=== PATIENT | female | born 1945 | race Hispanic/Latino ===

== ENCOUNTER 2019-07-09 13:46 | Emergency (ER) | payer MEDICARE ==
[~2019-07-09] VITALS: Ht 154.9 cm; Wt 63.6 kg
[2019-07-09] MEDS ORDERED: IBUPROFEN 600 MG TAB PO STA (14:08)
[2019-07-09] MEDS ORDERED: IBUPROFEN 600 MG TAB ONE (14:18)
[2019-07-09] MEDS ORDERED: CEFDINIR300 MG PO (15:17)
[2019-07-09] MEDS ORDERED: ACETAMINOPHEN 325 MG TAB ONE (15:42)
[2019-07-09] MEDS ORDERED: ACETAMINOPHEN 325 MG TAB PO ONE (15:45)
[2019-07-09 16:26] VITALS: BP 157/81
== END 2019-07-09 16:13 | disposition home or self-care (01) ==
LOC: FSED 13:46
DX: R50.9 Fever, unspecified (principal); R05 Cough; J20.9 Acute bronchitis, unspecified; J02.9 Acute pharyngitis, unspecified
CPT/HCPCS: 83518; 87400; 99283

== ENCOUNTER 2021-11-02 08:56 | Emergency (ER) | payer MEDICARE ==
[~2021-11-02] VITALS: Ht 157.5 cm; Wt 63.0 kg
[~2021-11-02 08:56] MED LIST: CEFDINIR300 MG PO
[2021-11-02] MEDS ORDERED: ANTIVERT25 M1 PO (09:29)
[2021-11-02 10:52] VITALS: BP 150/79
== END 2021-11-02 10:53 | disposition home or self-care (01) ==
LOC: FSED 09:22
DX: H81.12 Benign paroxysmal vertigo, left ear (principal); E11.65 Type 2 diabetes mellitus with hyperglycemia; I10 Essential (primary) hypertension; E78.5 Hyperlipidemia, unspecified; N28.9 Disorder of kidney and ureter, unspecified; J45.909 Unspecified asthma, uncomplicated; R94.31 Abnormal electrocardiogram [ECG] [EKG]; Z85.3 Personal history of malignant neoplasm of breast
CPT/HCPCS: 70450; 80053; 82553; 84484; 85025; 93005; 99284

== ENCOUNTER 2022-03-20 18:25 | Emergency (ER) | payer MEDICARE ==
[~2022-03-20] VITALS: Ht 157.5 cm; Wt 63.0 kg
[~2022-03-20 18:25] MED LIST changes: +ANTIVERT25 M1 PO
[2022-03-20] MEDS ORDERED: IBUPROFEN200 MG PO (18:54)
[2022-03-20] MEDS ORDERED: CLINDAMYCIN HC300 MG PO (18:54)
[2022-03-20] MEDS ORDERED: DOXYCYCLINE HY100 MG PO (18:54)
[2022-03-20] MEDS ORDERED: PROBIOTIC & AC1 EACH PO (18:54)
[2022-03-20] MEDS ORDERED: CEFTRIAXONE 1 GM VIAL IM ONE (19:00)
[2022-03-20] MEDS ORDERED: LIDOCAINE HCL 1% LOCAL INJ 20 ML VIAL ONE (19:18)
== END 2022-03-20 19:52 | disposition home or self-care (01) ==
LOC: FSED 18:36
DX: R50.9 Fever, unspecified (principal); L03.311 Cellulitis of abdominal wall; I12.9 Hypertensive chronic kidney disease with stage 1 through stage 4 chronic kidney disease, or unspecified chronic kidney disease; E11.22 Type 2 diabetes mellitus with diabetic chronic kidney disease; N18.9 Chronic kidney disease, unspecified; E78.5 Hyperlipidemia, unspecified; J45.909 Unspecified asthma, uncomplicated; Z85.3 Personal history of malignant neoplasm of breast
CPT/HCPCS: 99282; J0696; J2001

== ENCOUNTER 2024-12-07 20:27 | Emergency (ER) | payer MEDICARE ==
[~2024-12-07] VITALS: Ht 154.9 cm; Wt 63.5 kg
[~2024-12-07 20:27] MED LIST changes: +CLINDAMYCIN HC300 MG PO; +DOXYCYCLINE HY100 MG PO; +IBUPROFEN200 MG PO; +PROBIOTIC & AC1 EACH PO
[2024-12-07] MEDS ORDERED: PAXLOVID 300-11 EAC1 PO (23:38)
[2024-12-07 23:42] VITALS: PULSE 89; RESP 20; TEMP 100.2; O2SAT 95
== END 2024-12-07 23:44 | disposition home or self-care (01) ==
LOC: FSED 21:22
DX: R05.9 Cough, unspecified (principal); U07.1 COVID-19; I12.9 Hypertensive chronic kidney disease with stage 1 through stage 4 chronic kidney disease, or unspecified chronic kidney disease; E11.22 Type 2 diabetes mellitus with diabetic chronic kidney disease; N18.9 Chronic kidney disease, unspecified; E78.5 Hyperlipidemia, unspecified; J45.909 Unspecified asthma, uncomplicated; Z85.3 Personal history of malignant neoplasm of breast; M19.09 Primary osteoarthritis, other specified site
CPT/HCPCS: 0223U; 87400; 99283